=== PATIENT | female | born 1945 | race Caucasian/White ===

== ENCOUNTER 2016-07-09 15:03 | Outpatient (CLI) | payer MEDICARE, OTHER | END 2016-07-09 15:04 | disposition home or self-care (01) | DX: R91.8 Other nonspecific abnormal finding of lung field (principal) ==

== ENCOUNTER 2016-07-27 09:16 | Outpatient (CLI) | payer MEDICARE, OTHER | END 2016-07-27 09:17 | disposition home or self-care (01) | DX: R91.8 Other nonspecific abnormal finding of lung field (principal) ==

== ENCOUNTER 2017-02-07 07:48 | Outpatient (CLI) | payer MEDICARE, OTHER ==
[2017-02-06 12:40] LABS: CREATININE 0.8 mg/dL (0.4-1.0)
[2017-02-07] MEDS ORDERED: IOPAMIDOL-300 100 ML VIAL ONE (08:33)
[2017-02-07] MEDS ORDERED: IOPAMIDOL-300 100 ML VIAL IVP ONE (09:10)
--- NOTE | 2017-02-15 10:15 | CT Report ---
CT ABDOMEN WITH AND WITHOUT CONTRAST: 02/07/2017 CLINICAL INDICATION: Followup hepatic lesion. COMPARISON: Ultrasound of 10/16/2016. The CT of 09/11/2016 is not available for comparison at this time. If it becomes available, an addendum will be issued. TECHNIQUE: Axial CT images of the abdomen were obtained with and without intravenous contrast, with images obtained in early arterial, portal venous, and delayed phases. In accordance with CT protocol optimization, one or more of the following dose reduction techniques w ere utilized for this exam: automated exposure control, adjustment of mA and/or KV based on patient size, or use of iterative reconstructive technique. FINDINGS: Limited evaluation of the lung bases demonstrates atelectasis. The liver again demonstrates multiple cysts. There is a 4-mm hyperenhancing nodule noted in the far lateral right lobe of the liver. This does not appear to correlate with the described enhancement of the dome of the liver mentioned in the ultrasound report. Direct comparison with previous CT would be helpful. The spleen appears unremarkable. There is a small splenule in the splenic hilum. The k idneys demonstrate parapelvic cysts. No hydronephrosis is present. The gallbladder and pancreas mukesh ear unremarkable. No bowel dilatation, free gas, or free fluid is present. No abdominal adenopathy is appreciated. Osseous structures demonstrate degenerative changes. IMPRESSION: A 4-MM HYPERVASCULAR NODULE IN THE LATERAL RIGHT LOBE OF THE LIVER. IT IS UNCERTAIN IF THIS CORRELATES WITH THE PREVIOUSLY NOTED ABNORMALITY. DIRECT COMPARISON WITH PREVIOUS CT WOULD BE H ELPFUL, AND IF WE CAN OBTAIN THE PREVIOUS CT, AN ADDENDUM WILL BE ISSUED. JOB #: [id number] EXT JOB #:[id number]
== END 2017-02-07 07:49 | disposition home or self-care (01) ==
LOC: DI 07:48
PROVIDERS: ATTEND Nurse Practitioner Family
DX: K76.9 Liver disease, unspecified (principal)
CPT/HCPCS: 36415; 74170; 82565; Q9967

== ENCOUNTER → 2017-02-07 | Outpatient (CLI) | payer MEDICARE, OTHER ==
--- NOTE | 2017-03-01 11:47 | CT Report ---
REVISED: REPORT ORIGINALLY SIGNED 02/15/2017 @1013. ADDENDUM SIGNED 02/22/2017 @1208. REPORT & ADDENDUM MOVED TO CORRECT ACCOUNT -314 ON 03/01/2017jll PT NAME: LAZARA OTT MR#: [id number] DEP CLI/DI AGE: 71 CI DT/TM: 02/07/17 PCP: ALEXUS Castañeda : 1945 ATT: MARICRUZ Contreras SEX: F ORD: Jennifer ALCANTARA EXAM: [id number] CT/ABDWWO ([id number]) CT ABDOMEN WITH AND WITHOUT CONTRAST: 02/07/2017 CLINICAL INDICATION: Followup hepatic lesion. COMPARISON: Ultrasound of 10/16/2016. The CT of 09/11/2016 is not available for comparison at this time. If it becomes available, an addendum will be issued. TECHNIQUE: Axial CT images of the abdomen were obtained with and without intravenous contrast, with images obtained in early arterial, portal venous, and delayed phases. In accordance with CT protocol optimization, one or more of the following dose reduction techniques were utilized for this exam: automated exposure control, adjustment of mA and/or KV based on patient size, or use of iterative reconstructive technique. FINDINGS: Limited evaluation of the lung bases demonstrates atelectasis. The liver again demonstrates multiple cysts. There is a 4-mm hyperenhancing nodule noted in the far lateral right lobe of the liver. This does not appear to correlate with the described enhancement of the dome of the liver mentioned in the ultrasound report. Direct comparison with previous CT would be helpful. The spleen appears unremarkable. There is a small splenule in the splenic hilum. The kidneys demonstrate parapelvic cysts. No hydronephrosis is present. The gallbladder and pancreas appear unremarkable. No bowel dilatation , free gas, or free fluid is present. No abdominal adenopathy is appreciated. Osseous structures demonstrate degenerative changes. IMPRESSION: A 4-MM HYPERVASCULAR NODULE IN THE LATERAL RIGHT LOBE OF THE LIVER. IT IS UNCERTAIN IF THIS CORRELATES WITH THE PREVIOUSLY NOTED ABNORMALITY. DIRECT COMPARISON WITH PREVIOUS CT WOULD BE HELPFUL, AND IF WE CAN OBTAIN THE PREVIOUS CT, AN ADDENDUM WILL BE ISSUED. JOB #: [id number] EXT JOB #: [id number] [employer] Worker: Reading Radiologist: Jimi White MD Releasing Radiologist: Jimi White MD Released Date Time: 02/15/17 1101 <Electronically signed by Jimi White MD> cc: MARICRUZ Contreras; ALEXUS Castañeda ADDENDUM ADDENDUM: Previous outside CT dated 09/11/2016 is now available for direct comparison. The previously seen enhancing lesion at the dome of the liver has resolved completely. No residual abnormal enhancement is appreciated at the previously noted site. The tiny 4-mm hyperdense nodule in the lateral right lobe , posterior to the dominant cyst, is unchanged from previous. No suspicious changes are seen. IMPRESSION: RESOLUTION OF PREVIOUSLY SEEN ENHANCEMENT AT THE DOME OF THE LIVER. NO RESIDUAL LESION IS APPRECIATED AT THAT SITE. NO SUSPICIOUS HEPATIC LESION IS SEEN. Addendum [employer] Worker: MIRIAM Addendum Reading Radiologist: Jimi White MD Addendum Releasing Radiologist: Jimi White MD Addendum Released Date Time: 02/22/17 1208 MTDD
--- NOTE | 2017-03-01 13:30 | CT Report ---
REVISED: REPORT ORIG. SIGNED 02/15/2017 @1101; ADDENDUM SIGNED 02/22/2017 @ 1208 REPORT & ADDENDUM MOVED TO CORRECT ACCOUNT 03/01/2017 @[address] ABDOMEN WITH AND WITHOUT CONTRAST: 02/07/2017 CLINICAL INDICATION: Followup hepatic lesion. COMPARISON: Ultrasound of 10/16/2016. The CT of 09/11/2016 is not available for comparison at this time. If it becomes available, an addendum will be issued. TECHNIQUE: Axial CT images of the abdomen were obtained with and without intravenous contrast, with images obtained in early arterial, portal venous, and delayed phases. In accordance with CT protocol optimization, one or more of the following dose reduction techniques were utilized for this exam: automated exposure control, adjustment of mA and/or KV based on patient size, or use of iterative reconstructive technique. FINDINGS: Limited evaluation of the lung bases demonstrates atelectasis. The liver again demonstrates multiple cysts. There is a 4-mm hyperenhancing nodule noted in the far lateral right lobe of the liver. This does not appear to correlate with the described enhancement of the dome of the liver mentioned in the ultrasound report. Direct comparison with previous CT would be helpful. The spleen appears unremarkable. There is a small splenule in the splenic hilum. The kidneys demonstrate parapelvic cysts. No hydronephrosis is present. The gallbladder and pancreas appear unremarkable. No bowel dilatation , free gas, or free fluid is present. No abdominal adenopathy is appreciated. Osseous structures demonstrate degenerative changes. IMPRESSION: A 4-MM HYPERVASCULAR NODULE IN THE LATERAL RIGHT LOBE OF THE LIVER. IT IS UNCERTAIN IF THIS CORRELATES WITH THE PREVIOUSLY NOTED ABNORMALITY. DIRECT COMPARISON WITH PREVIOUS CT WOULD BE HELPFUL, AND IF WE CAN OBTAIN THE PREVIOUS CT, AN ADDENDUM WILL BE ISSUED. JOB #: [id number] EXT JOB #: [id number] Hand Washer: Reading Radiologist: Jimi White MD Releasing Radiologist: Jimi White MD Released Date Time: 02/15/17 1101 <Electronically signed by Jimi White MD> cc: MARICRUZ Contreras; ALEXUS Castañeda ADDENDUM ADDENDUM: Previous outside CT dated 09/11/2016 is now available for direct comparison. The previously seen enhancing lesion at the dome of the liver has resolved completely. No residual abnormal enhancement is appreciated at the previously noted site. The tiny 4-mm hyperdense nodule in the lateral right lobe , posterior to the dominant cyst, is unchanged from previous. No suspicious changes are seen. IMPRESSION: RESOLUTION OF PREVIOUSLY SEEN ENHANCEMENT AT THE DOME OF THE LIVER. NO RESIDUAL LESION IS APPRECIATED AT THAT SIDE. NO SUSPICIOUS HEPATIC LESION IS SEEN. Addendum Hand Washer: MIRIAM Addendum Reading Radiologist: Jimi White MD Addendum Releasing Radiologist: Jimi White MD Addendum Released Date Time: 02/22/17 1208 MTDD
== END ==
LOC: DI 08:00
PROVIDERS: ATTEND Nurse Practitioner Family
DX: K76.9 Liver disease, unspecified (principal)
CPT/HCPCS: 74170; Q9967

== ENCOUNTER 2017-04-01 11:13 | Outpatient (CLI) | payer MEDICARE, OTHER ==
--- NOTE | 2017-04-02 18:51 | Mammography Report ---
DIGITAL SCREENING MAMMOGRAM: 04/01/2017 CLINICAL INDICATION: A 71-year-old nulliparous patient with history of benign right breast biopsy fo r screening. COMPARISON: 01/2016, 12/2014, 11/2013, 10/2012, 10/2011, 09/2010, 09/2009. TECHNIQUE: Routine CC and MLO projections as well as bilateral laterally exaggerated craniocaudal vi ews were obtained of the breasts. The breasts again demonstrate heterogeneously dense fibroglandular parenchyma bilaterally. Post-biop sy changes in the right breast are stable. Punctate, typically benign calcifications are present. N o suspicious masses, clustered microcalcifications, or regions of architectural distortion are identi fied. IMPRESSION: BENIGN FINDINGS. RECOMMENDATION: ROUTINE ANNUAL SCREENING UNLESS OTHERWISE CLINICALLY INDICATED. BIRADS CATEGORY: 2, BENIGN FINDINGS. STANDARD QUALIFYING STATEMENTS 1. This examination was reviewed with the aid of Computed-Aided Detection (CAD). 2. A negative or benign imaging report should not delay biopsy if clinically suspicious findings are present. Consider surgical consultation if warranted. More than 5% of cancers are not identified b y imaging. 3. Dense breasts may obscure an underlying neoplasm. JOB #: [id number] EXT JOB #:[id number]
== END 2017-04-01 11:14 | disposition home or self-care (01) ==
LOC: DI 11:13
PROVIDERS: ATTEND Physician Assistant
DX: Z12.31 Encounter for screening mammogram for malignant neoplasm of breast (principal)
CPT/HCPCS: 77067

== ENCOUNTER 2017-09-25 15:30 | Outpatient (CLI) | payer MEDICARE, OTHER ==
[2017-09-25] MEDS ORDERED: IOPAMIDOL-300 50 ML VIAL ONE (15:44)
[2017-09-25] MEDS ORDERED: IOPAMIDOL-300 100 ML VIAL ONE (15:44)
[2017-09-25 15:46] LABS: BASOPHILS # (AUTO) 0.1 10^3/uL (0.0-0.1); BASOPHILS % (AUTO) 0.8 %; EOSINOPHILS % (AUTO) 0.7 %; HGB - HEMOGLOBIN 12.7 g/dL (12.0-16.0); LYMPHOCYTES # (AUTO) 2.3 10^3/uL (1.5-3.5); MEAN CORPUSCULAR HEMOGLOBIN 30.6 pg (27.0-31.0); MEAN CORPUSCULAR HGB CONC 33.3 g/dL (32.0-36.0); MEAN PLATELET VOLUME 7.4 fL (7.9-10.8); MONOCYTES # (AUTO) 0.7 10^3/uL (0.0-1.0); MONOCYTES % (AUTO) 9.8 %; NEUTROPHILS # (AUTO) 3.8 10^3/uL (1.5-6.6); NEUTROPHILS % (AUTO) 55.7 %; PLT - PLATELET COUNT 254 10^3/uL (130-450); RED BLOOD COUNT 4.15 10^6/uL (4.20-5.40); RED CELL DISTRIBUTION WIDTH 13.7 % (12.0-15.0); WHITE BLOOD COUNT 6.9 x10^3/uL (4.8-10.8)
[2017-09-25 15:59] LABS: ALBUMIN 4.4 g/dL (3.2-5.5); ALBUMIN/GLOBULIN RATIO 1.9 (1.0-2.2); BILIRUBIN,TOTAL 0.7 mg/dL (0.2-1.0); CALCIUM 8.9 mg/dL (8.5-10.3); TOTAL PROTEIN 6.7 g/dL (6.7-8.2)
--- NOTE | 2017-09-25 17:18 | CT Report ---
EXAM: CT ABDOMEN AND PELVIS EXAM DATE: 09/25/2017 04:58 PM. CLINICAL HISTORY: RLQ PX, DIARRHEA, HX RENAL STONES. COMPARISONS: 02/07/2017. TECHNIQUE: Routine helical CT imaging was performed through the abdomen and pelvis. IV contrast: 100M L ISOVUE 300. Enteric contrast: Yes. Reconstructions: Coronal and sagittal. In accordance with CT protocol optimization, one or more of the following dose reduction techniques w ere utilized for this exam: automated exposure control, adjustment of mA and/or KV based on patient s ize, or use of iterative reconstructive technique. FINDINGS: Lung Bases: Unremarkable. Liver: Small cysts or hemangiomata. Flash hemangioma in posterior right lobe. No suspicious lesions. Gallbladder/Bile Ducts: Unremarkable. Spleen: Normal. Small accessory spleen. Pancreas: Normal. Adrenal Glands: Normal. Kidneys: Parapelvic cysts. Otherwise unremarkable. No stone or hydronephrosis. Peritoneal Cavity/Bowel: Mild to moderate colonic diverticulosis. No free fluid, free air or adenopat hy. No masses or acute inflammatory process. Unremarkable region of appendix. Pelvic Organs: Unremarkable urinary bladder. Absent uterus. Vasculature: No aneurysms or other significant abnormality. Bones: No significant abnormality. Other: None. IMPRESSION: Mild to moderate diverticulosis and other chronic or incidental findings. No definite acu te disease. [facility] Referring Provider Line: [phone] SITE ID: [id number]
== END 2017-09-25 15:31 | disposition home or self-care (01) ==
LOC: DI 15:30
PROVIDERS: ATTEND Physician Assistant
DX: R10.31 Right lower quadrant pain (principal); R19.7 Diarrhea, unspecified; I10 Essential (primary) hypertension; K57.30 Diverticulosis of large intestine without perforation or abscess without bleeding
CPT/HCPCS: 36415; 74177; 80053; 85025; Q9967

== ENCOUNTER 2018-05-07 09:07 | Outpatient (CLI) | payer MEDICARE, OTHER ==
--- NOTE | 2018-05-07 19:46 | XRAY Report ---
Reason: DISORDER OF BONE Procedure Date: 05/07/2018 Accession Number: [id number] / [id number] Procedure: XR - Humerus RT CPT Code: FULL RESULT: EXAM: RIGHT HUMERUS RADIOGRAPHY. EXAM DATE: 05/07/2018 11:07 AM. CLINICAL HISTORY: Disorder of bone. COMPARISON: The reported chest radiograph is likely not available for comparison. A chest radiograph dated 07/27/2016 is reviewed. TECHNIQUE: 2 views. FINDINGS: Bones: The lesion demonstrates benign features with relatively well-circumscribed margin and no definite osseous destruction. While imaging findings are not pathognomonic, the appearance is that of a nonossifying fibroma, a benign lesion. Joints: Normal. No effusions or subluxations in the visualized shoulder or elbow joints. Soft Tissues: Normal. No soft tissue swelling. 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 [facility]
== END 2018-05-07 09:08 | disposition home or self-care (01) ==
LOC: DI 09:07
PROVIDERS: ATTEND Physician Assistant
DX: R07.2 Precordial pain (principal); I42.2 Other hypertrophic cardiomyopathy; M89.9 Disorder of bone, unspecified
CPT/HCPCS: 93306

== ENCOUNTER 2018-05-25 08:30 | Emergency (ER) | payer MEDICARE, OTHER ==
[2018-05-25 08:47] VITALS: BP 109/59
--- NOTE | 2018-05-25 09:08 | ED Physician Documentation ---
PD HPI LOWER EXT INJURY - Stated complaint Stated Complaint: R ANKLE PAIN - Chief complaint Chief Complaint: Ext Problem - History obtained from History obtained from: Patient - History of Present Illness PD HPI LOW EXT INJURY LOCATION: Right, Ankle Type of injury: Blunt / blow Where injury occurred: Home Timing - onset: Yesterday Worsened by: Palpating, Other (Weight bearing) Associated symptoms: Swelling Similar symptoms before: Other (Previous right talus fracture and distal fibular fracture about five years ago.) - Treatment prior to arrival Treatment prior to arrival: Ibuprophen - Additional information Additional information: Patient is a 72-year-old female who presents with right ankle pain and swelling. She was picking up large branches in her yard yesterday when she dropped a large branch onto her right ankle. When she awoke this morning she found increased swelling and ecchymosis. She has a past history of a right talus fracture that took about 6 months to heal. She also has a history of right distal fibular fracture about 5 years ago. These fractures did not require surgical repair. Review of Systems Constitutional: denies: Fever Skin: denies: Rash, Abrasion (s) Musculoskeletal: reports: Joint pain (right ankle), Joint swelling (right ankle) Neurologic: denies: Focal weakness, Numbness PD PAST MEDICAL HISTORY - Past Medical History Cardiovascular: High cholesterol Respiratory: None Endocrine/Autoimmune: None GI: Ulcers : None HEENT: None Psych: None Musculoskeletal: Osteoarthritis Derm: None - Past Surgical History Past Surgical History: Yes General: Colonoscopy Ortho: Other /[employer]: Hysterectomy HEENT: Tonsil/Adenoidectomy - Present Medications Home Medications: Ambulatory Orders Medication Instructions Recorded Confirmed Gabapentin 300 mg PO DAILY PRN 12/17/12 03/17/14 Nadolol [Corgard] 10 mg PO BID 12/17/12 03/16/14 Simvastatin 20 mg PO DAILY 12/17/12 03/16/14 - Allergies Allergies/Adverse Reactions: Allergies Allergy/AdvReac Type Severity Reaction Status Date / Time codeine [Codeine] Allergy Intermediate Itching Verified 05/25/18 08:42 adhesive Allergy Unknown Rash Verified 05/25/18 08:42 cephalexin monohydrate * AdvReac Intermediate Nausea Verified 05/25/18 08:42 [From Keflex] - Social History Does the pt smoke?: No Smoking Status: Never smoker Does the pt drink ETOH?: Yes Does the pt have substance abuse?: No - Immunizations Immunizations are current?: Yes PD ED PE NORMAL - Vitals Vital signs reviewed: Yes (normal) - General General: Alert and oriented X 3, Well developed/nourished - HEENT HEENT: Atraumatic - Respiratory Respiratory: No respiratory distress - Derm Derm: No rash - Extremities Extremities: No calf tenderness / cord, Other (There is ecchymosis at the medial aspect of the right ankle, without break in the integument. There is no tenderness to palpation along the posterior aspect of the medial malleolus. There is also swelling and tenderness to palpation over the anterior aspect of the right lateral malleolus. There is no tenderness at the fifth metatarsal base or the proximal fibula. Distal neurovascular is intact.) - Neuro Neuro: Alert and oriented X 3, No motor deficit, No sensory deficit Results - Vitals Vitals: Vital Signs - 24 hr 05/25/18 08:40 Temperature 36.0 C L Heart Rate 63 Respiratory 16 Rate Blood Pressure 109/59 L O2 Saturation 98 Oxygen O2 Source Room air - Rads (name of study) Right ankle Radiology: Prelim report reviewed, EMP read contemporaneously, See rad report (No fracture or malalignment. Ankle mortise intact. Small ankle joint effusion with mild soft tissue swelling. If patient remains symptomatic, recommend radiographs in 10-14 days.) PD MEDICAL DECISION MAKING - ED course Complexity details: reviewed results, re-evaluated patient, considered differential, d/w patient, d/w family ED course: The patient's presentation is most consistent with contusion to the right ankle, with hematoma formation. There is no evidence of acute bony abnormality on radiographic imaging. I discussed with her and her the expected course of injury, symptomatic treatment and outpatient follow-up, as well as potentially worrisome signs or symptoms that should prompt reevaluation in the emergency department. Departure - Departure Disposition: 01 Home, Self Care Clinical Impression: Contusion of right ankle Qualifiers: Encounter type: initial encounter Qualified Code(s): S90.01XA - Contusion of right ankle, initial encounter Condition: Stable Instructions: ED Contusion Lower Ext Follow-Up: Cat Philippe PA [Primary Care Provider] - Comments: Keep your right foot elevated as much the time as possible. Apply ice pack intermittently for the next 3 days. You can use ibuprofen, up to 800 mg 3 times daily for its anti-inflammatory effect. Let pain be your guide to activity level. Follow-up with your primary physician or return to the emergency department if progressively worse or if not starting to improve within 2 weeks.
--- NOTE | 2018-05-25 09:19 | XRAY Report ---
Reason: Pain swelling after tree branch fell on it. Procedure Date: 05/25/2018 Accession Number: [id number] / [id number] Procedure: XR - Ankle 3 View RT CPT Code: FULL RESULT: EXAM: RIGHT ANKLE RADIOGRAPHY EXAM DATE: 05/25/2018 08:52 AM. CLINICAL HISTORY: Pain swelling after tree branch fell on it. COMPARISON: ANKLE 3 VIEW LT 11/11/2013 2:33 PM. TECHNIQUE: 3 views. FINDINGS: Bones: Normal. No fractures or bone lesions. Joints: Small ankle joint effusion. The ankle mortise is normally aligned. Soft Tissues: Mild right ankle soft tissue swelling noted. No radiopaque foreign bodies are noted. IMPRESSION: 1. No fracture or malalignment. 2. Ankle mortise intact. 3. Small ankle joint effusion with mild soft tissue swelling. 4. If patient remains symptomatic, recommend radiographs in 10-14 days. [facility]
== END 2018-05-25 09:32 | disposition home or self-care (01) ==
LOC: ED 08:30
DX: S90.01XA Contusion of right ankle, initial encounter (principal); W20.8XXA Other cause of strike by thrown, projected or falling object, initial encounter; Y93.H2 Activity, gardening and landscaping; Y92.007 Garden or yard of unspecified non-institutional (private) residence as the place of occurrence of the external cause
CPT/HCPCS: 99282

== ENCOUNTER 2018-07-07 12:09 | Outpatient (CLI) | payer MEDICARE, OTHER ==
--- NOTE | 2018-07-08 08:19 | Mammography Report ---
Reason: SCREENING MAMMO Procedure Date: 07/07/2018 Accession Number: [id number] / [id number] Procedure: MGN - Screening Mammo Dig Bilat CPT Code: FULL RESULT: EXAM: Screening Mammo Dig Bilat DATE: 07/07/2018 12:33 PM CLINICAL HISTORY: Screening encounter. History of nulliparity. History of benign right breast biopsy. TECHNIQUE: Bilateral CC, laterally exaggerated CC, MLO views were obtained. COMPARISON: 04/01/2017 through 12/17/2013. FINDINGS: The breasts demonstrate heterogeneously dense fibroglandular parenchyma bilaterally. Postsurgical changes are noted in the right breast. No suspicious masses, clustered microcalcifications, or regions of architectural distortion are identified. IMPRESSION: Benign findings RECOMMENDATION: Routine annual screening unless otherwise clinically indicated. BIRADS CATEGORY 2: Benign findings STANDARD QUALIFYING STATEMENTS: 1. This examination was reviewed with the aid of Computer-Aided Detection (CAD). 2. A negative or benign imaging report should not delay biopsy if clinically suspicious findings are present. Consider surgical consultation if warrented. More than 5% of cancers are not identified by imaging. 3. Dense breasts may obscure an underlying neoplasm.
== END 2018-07-07 12:10 | disposition home or self-care (01) ==
LOC: DI.N 12:09
DX: Z12.31 Encounter for screening mammogram for malignant neoplasm of breast (principal)
CPT/HCPCS: 77067

== ENCOUNTER 2019-07-01 14:44 | Outpatient (CLI) | payer MEDICARE, OTHER ==
--- NOTE | 2019-07-02 09:57 | XRAY Report ---
Reason: PLEURODYNIA Procedure Date: 07/01/2019 Accession Number: [id number] / [id number] Procedure: XRS - Ribs Bilat w/Chest 4 View CPT Code: Final Report FULL RESULT: EXAM: BILATERAL RIB RADIOGRAPHY EXAM DATE: 07/01/2019 03:04 PM. CLINICAL HISTORY: Pleurodynia. COMPARISON: CHEST 2 VIEW PA/LAT 07/27/2016 9:53 AM. TECHNIQUE: 1 view of the chest and 2 views of the ribs. FINDINGS: Bones: Diffuse osteopenia noted. No acute rib fracture identified. No rib bone lesion visualized. A right proximal humeral diaphyseal sclerotic rimmed bone cyst is noted measuring approximately 2.3 cm. It was also visualized on the 2017 exam and is not significantly changed. Lungs: No focal opacities. No pneumothorax. No pleural effusions. Mediastinum: Heart and mediastinal contours are unremarkable. Other: None. IMPRESSION: 1. No rib fracture, effusion or pneumothorax evident. 2. Proximal right humeral cortical bone cyst has benign appearance and is not significantly changed. [facility]
== END 2019-07-01 14:45 | disposition home or self-care (01) ==
LOC: DI.S 14:44
PROVIDERS: ATTEND Nurse Practitioner Family
DX: R07.81 Pleurodynia (principal); M85.621 Other cyst of bone, right upper arm
CPT/HCPCS: 71111

== ENCOUNTER 2019-07-16 14:48 | Outpatient (CLI) | payer MEDICARE, OTHER ==
--- NOTE | 2019-07-20 13:03 | DEXA Report ---
Reason: ASYMPTOMATIC MENOPAUSAL STATE Procedure Date: 07/16/2019 Accession Number: [id number] / [id number] Procedure: DEX - Dexa Spine and/or Hip CPT Code: Final Report FULL RESULT: EXAM: Dexa Spine and/or Hip DATE: 07/16/2019 3:18 PM CLINICAL HISTORY: ASYMPTOMATIC MENOPAUSAL STATE TECHNIQUE: Dual energy x-ray absorptiometry (DXA) was performed on a [employer] System. Regions measured are the AP Spine, femoral neck, and if needed forearm. COMPARISON: 12/09/2015. In accordance with the International Society for Clinical Densitometry (ISCD) guidelines, data from previous exams may be reanalyzed using current recommendations and techniques. This is done to allow a more accurate basis for comparison with the current study. FINDINGS: The data for the lumbar spine is as follows: BMD (g/cm/cm) T-SCORE Z-SCORE REGION L1 0.847 -2.4 -0.4 L2 0.914 -2.4 -0.4 L3 1.009 -1.6 0.4 L4 0.977 -1.9 0.1 TOTAL 0.937 -2.0 0.0 NOTE: All evaluable vertebrae are used for classification The data for the hip is as follows: BMD (g/cm/cm) T-SCORE Z-SCORE REGION Neck 0.831 -1.5 0.5 TOTAL 0.789 -1.7 0.0 NOTE: The femoral neck or total proximal femur, whichever is lowest, is used for classification. DXA RESULTS SUMMARY: Spine SCAN DATE AGE BMD CHANGE VS CHANGE VS PREVIOUS PREVIOUS % 07/16/2019 74.0 0.937 -0.003 -0.3 12/09/2015 [age] 0.940 * Denotes significant change at the 95% confidence level. Denotes dissimilar scan types or analysis methods. DXA RESULTS SUMMARY: Hip SCAN DATE AGE BMD CHANGE VS CHANGE VS PREVIOUS PREVIOUS % 07/16/2019 74.0 0.789 -0.004 -0.5 [birth year]/09/2015 70.4 0.793 * Denotes significant change at the 95% confidence level. Denotes dissimilar scan types or analysis methods. IMPRESSION: THE WHO CLASSIFICATION BASED ON THE INTERNATIONAL REFERENCE STANDARD IS OSTEOPENIA. THE FRACTURE RISK IS INCREASED. RECOMMENDATION: Patients with diagnosis of osteoporosis or osteopenia should have regular bone mineral density assessment. For those eligible for Medicare, routine testing is allowed once every 2 years. Testing frequency can be increased for patients who have rapidly progressing disease or for those who are receiving medical therapy to restore bone mass. COMMENT: World Health Organization (WHO) definitions for osteoporosis and osteopenia: NORMAL BMD: T-score at -1.0 or higher, fracture risk is low OSTEOPENIA BMD: T-score between -1.0 and -2.5, fracture risk is increased. OSTEOPOROSIS BMD: T-score at -2.5 or lower, fracture risk is high. National Osteoporosis Foundation recommends: 1. Obtain adequate dietary calcium (at least 1200 mg per day) and vitamin D (400-800 international units per day). 2. Participate, as appropriate, in regular weightbearing and muscle-strengthening exercise. 3. Avoid tobacco use and reduce alcohol and caffeine intake. 4. For more detailed information see the website at www.NOF.org.
== END 2019-07-16 14:49 | disposition home or self-care (01) ==
LOC: DI 14:48
PROVIDERS: ATTEND Nurse Practitioner Family
DX: M85.89 Other specified disorders of bone density and structure, multiple sites (principal)
CPT/HCPCS: 77080

== ENCOUNTER 2020-06-23 10:05 | Outpatient (CLI) | payer MEDICARE, OTHER ==
--- NOTE | 2020-06-23 10:28 | XRAY Report ---
PROCEDURE: Chest 2 View X-Ray INDICATIONS: HYPERTROPHIC CARDIOMYOPATHY TECHNIQUE: 2 view(s) of the chest. COMPARISON: Two-view chest 07/27/2016. FINDINGS: Surgical changes and devices: None. Lungs and pleura: No pleural effusions or pneumothorax. Lungs are clear. Mediastinum: Mediastinal contours are normal. Heart size is normal. Bones and chest wall: No suspicious bony abnormalities. Soft tissues appear unremarkable. IMPRESSION: Normal for age, no sign of cardiomegaly or CHF. Reviewed by: Azar Kilgore MD on 06/23/2020 10:[address] [facility] Approved by: Azar Kilgore MD on 06/23/2020 10:[address] [facility] Station ID: [id number]
== END 2020-06-23 10:06 | disposition home or self-care (01) ==
LOC: DI 10:05
PROVIDERS: ATTEND Registered Nurse
DX: I42.2 Other hypertrophic cardiomyopathy (principal)